=== PATIENT | female | born 1955 | race Caucasian/White ===

== ENCOUNTER 2018-11-21 03:45 | Emergency (ER) | payer MEDICARE, OTHER, BC ==
[2018-11-21] MEDS ORDERED: Albuterol/Ipratropium NEB.SOL* Albuterol 2.5 MG/Ipratropium 0.5 MG 3 ML INH ONE (04:03)
[2018-11-21 04:21] LABS: ABS Basophils 0.1 10^3/ul (0-0.2); ABS Eosinophils 0.1 10^3/ul (0-0.6); ABS Lymphocytes 1.8 10^3/ul (1.0-4.8); ABS Monocytes 0.5 10^3/ul (0-0.8); ABS Neutrophils 7.6 10^3/ul (1.5-7.7); Eosinophil % 1.1 %; Hematocrit 36 % (35-47); Hemoglobin 12.8 g/dL (12.0-16.0); Lymphocyte % 18.1 %; Mean Corpuscular HGB Conc 35 g/dL (31-36); Mean Corpuscular Hemoglobin 29 pg (27-31); Mean Corpuscular Volume 82 fL (80-97); Mean Platelet Volume 8.4 fL (7.4-10.4); Platelet Count 336 10^3/uL (150-450); Red Blood Count 4.43 10^6 /uL (3.70-4.87); Red Cell Distribution Width 13 % (10-15); White Blood Count 10.1 10^3/uL (3.5-10.8)
[2018-11-21 04:39] LABS: Albumin 4.2 g/dL (3.2-5.2); Albumin/Globulin Ratio 1.4 (1-3); BUN/Creatinine Ratio 20.5 (8-20); Calcium 9.7 mg/dL (8.6-10.3); EGFR African American 96.8 (>60); Globulin 2.9 g/dL (2-4); Potassium 3.4 mmol/L (3.5-5.0); Total Bilirubin 0.4 mg/dL (0.2-1.0); Total Protein 7.1 g/dL (6.4-8.9)
[2018-11-21] MEDS ORDERED: Lidocaine 4% TOPICAL* 50 ML TOP.SOLN TOPICAL ONE (04:47)
[2018-11-21] MEDS ORDERED: Benzonatate CAP* 100 MG PO ONE (05:52)
[2018-11-21] MEDS ORDERED: Iohexol 300* (CONTRAST) 10 ML SDV IV ONE (05:55)
--- NOTE | 2018-11-21 06:52 | ED ---
Shortness of Breath - HPI Summary HPI Summary: This patient is a 63 year old F w hx asthma [facility] by with a chief complaint of productive cough since 11/11/18. Patient states that she saw her PCP on 11/13/18 for symptoms. Patient's PCP diagnosed her with bronchitis of lower lungs and prescribed a Zpack. Patient states she has a persistent dry cough worse at night has been keeping her up at night. She also feels that her throat is tight and painful secondary to coughing. She reports shortness of breath worse when she coughs, no chest pain, no fevers. Patient reports PMHx of asthma and last administered inhaler at 0200. Patient reports she is on Hydrochlorothiazide. PMHx of HTN is noted. - History of Current Complaint Chief Complaint: EDShortnessOfBreath Time Seen by Provider: 11/21/18 03:55 Hx Obtained From: Patient, Family/Glass Beveler - Onset/Duration: Lasting Days - 11/11/18, Still Present Timing: Constant Current Severity: Mild - 5/10 per ED Triage Dyspnea At: Rest Associated Signs & Symptoms: Cough (Productive) - white sputum - Allergy/Home Medications Allergies/Adverse Reactions: Allergies Allergy/AdvReac Type Severity Reaction Status Date / Time No Known Allergies Allergy Verified 11/21/18 03:47 Home Medications: Home Medications Albuterol inh POWDER (NF) [Proair Respiclick] 1 - 2 puff INH QID PRN 11/21/18 [ History Confirmed 11/21/18] Cholecalciferol (Vitamin D3) [Vitamin D3] 1 cap PO DAILY 11/21/18 [History Confirmed 11/21/18] Codeine Phosphate/Guaifenesin [Virtussin AC Liquid] 1 dose PO Q8H PRN 11/21/18 [ History Confirmed 11/21/18] Conjugated Estrogens TAB* [Premarin TAB*] 0.3 mg PO EVERY OTHER DAY 11/21/18 [ History Confirmed 11/21/18] Hydrochlorothiazide TAB* [Hydrodiuril TAB*] 25 mg PO DAILY 11/21/18 [History Confirmed 11/21/18] Magnesium Oxide TAB* [MagOx 400 TAB*] 1 tab PO DAILY 11/21/18 [History Confirmed 11/21/18] Multivitamin [Multivitamins] 1 tab PO DAILY 11/21/18 [History Confirmed 11/21/18 ] PMH/Surg Hx/FS Hx/Imm Hx Endocrine/Hematology History: Denies: Hx Diabetes Cardiovascular History: Reports: Hx Hypertension Denies: Hx Pacemaker/ICD Respiratory History: Reports: Hx Asthma Denies: Hx Chronic Obstructive Pulmonary Disease (COPD) History: Denies: Hx Renal Disease Sensory History: Denies: Hx Hearing Aid Psychiatric History: Denies: Hx Panic Disorder - Cancer History Hx Chemotherapy: No Hx Radiation Therapy: No - Surgical History Surgery Procedure, Year, and Place: HYSTERECTOMY/FALLEN BLADDER CORRECTION/ APPENDECTOMY/TONSILS/CYST REMOVED FROM BREAST. LASER PROCEDURE FOR ENDOMETRIOSIS X 3 Infectious Disease History: No Infectious Disease History: Denies: Traveled Outside the [place] in Last 30 Days - Family History Known Family History: Positive: Diabetes - Social History Alcohol Use: None Substance Use Type: Reports: None Hx Tobacco Use: No Smoking Status (MU): Never Smoked Tobacco Review of Systems Negative: Fever Positive: Shortness Of Breath, Cough, Other - Negative- Wheezing All Other Systems Reviewed And Are Negative: Yes Physical Exam - Summary Physical Exam Summary: Constitutional: Well-developed, Well-nourished, Alert. (-) Distressed Skin: Warm, Dry HENT: Normocephalic; Atraumatic Eyes: Conjunctiva normal Neck: Musculoskeletal ROM normal neck. (-) JVD, (-) Stridor, (-) Nuchal rigidity Cardio: Rhythm regular, rate normal, Heart sounds normal; Intact distal pulses; Radial pulses are 2+ and symmetric. (-) Murmur Pulmonary/Chest wall: Mild inc WOB, dry cough (-) Respiratory distress, (-) Wheezes, (-) Rales Abd: Soft, (-) tenderness, (-) Distension, (-) Guarding, (-) Rebound Musculoskeletal: (-) Edema Lymph: (-) Cervical adenopathy Neuro: Alert, Oriented x3 Psych: Mood and affect Normal Triage Information Reviewed: Yes Vital Signs On Initial Exam: Initial Vitals Temp Pulse Resp BP Pulse Ox 98 F 71 24 186/72 98 11/21/18 03:46 11/21/18 03:46 11/21/18 03:46 11/21/18 03:46 11/21/18 03:46 Vital Signs Reviewed: Yes Diagnostics - Vital Signs Vital Signs Temp Pulse Resp BP Pulse Ox 11/21/18 05:17 74 98 11/21/18 05:16 175/82 11/21/18 04:20 64 16 96 11/21/18 04:15 20 11/21/18 04:03 68 97 11/21/18 03:46 98 F 71 24 186/72 98 - Laboratory Lab Results: Lab Results 11/21/18 11/21/18 11/21/18 Range/Units 04:15 04:15 04:15 WBC 10.1 (3.5-10.8) 10^3/uL RBC 4.43 (3.70-4.87) 10^6 /uL Hgb 12.8 (12.0-16.0) g/dL Hct 36 (35-47) % MCV 82 (80-97) fL MCH 29 (27-31) pg MCHC 35 (31-36) g/dL RDW 13 (10-15) % Plt Count 336 (150-450) 10^3/uL MPV 8.4 (7.4-10.4) fL Neut % (Auto) 74.7 % Lymph % (Auto) 18.1 % Prentiss % (Auto) 5.4 % Eos % (Auto) 1.1 % Baso % (Auto) 0.7 % Absolute Neuts (auto) 7.6 (1.5-7.7) 10^3/ul Absolute Lymphs (auto) 1.8 (1.0-4.8) 10^3/ul Absolute Monos (auto) 0.5 (0-0.8) 10^3/ul Absolute Eos (auto) 0.1 (0-0.6) 10^3/ul Absolute Basos (auto) 0.1 (0-0.2) 10^3/ul Absolute Nucleated RBC 0.0 10^3/ul Nucleated RBC % 0.0 Sodium 138 (135-145) mmol/L Potassium 3.4 L (3.5-5.0) mmol/L Chloride 103 (101-111) mmol/L Carbon Dioxide 21 L (22-32) mmol/L Anion Gap 14 H (2-11) mmol/L BUN 15 (6-24) mg/dL Creatinine 0.73 (0.51-0.95) mg/dL Est GFR ( Amer) 96.8 (>60) Est GFR (Non-Af Amer) 80.0 (>60) BUN/Creatinine Ratio 20.5 H (8-20) Glucose 135 H (70-100) mg/dL Calcium 9.7 (8.6-10.3) mg/dL Total Bilirubin 0.40 (0.2-1.0) mg/dL AST 22 (13-39) U/L ALT 36 (7-52) U/L Alkaline Phosphatase 111 H (34-104) U/L B-Natriuretic Peptide 43 (<=100) pg/mL Total Protein 7.1 (6.4-8.9) g/dL Albumin 4.2 (3.2-5.2) g/dL Globulin 2.9 (2-4) g/dL Albumin/Globulin Ratio 1.4 (1-3) Result Diagrams: 11/21/18 04:15 11/21/18 04:15 Lab Statement: Any lab studies that have been ordered have been reviewed, and results considered in the medical decision making process. - Radiology CXR Radiology Interpretation Completed By: ED Physician Summary of Radiographic Findings: No acute process, pending official report. - CT Neck CT Scan CT Interpretation Completed By: Radiologist Summary of CT Findings: Neck CT Scan reveals, per radiologist, IMPRESSION: Multiple nodules are located in the right thyroid lobe. Largest nodule measures 1.3 cm in diameter. If the thyroid nodules are in the location of the patient's perceived neck swelling, suggest ultrasound evaluation of the thyroid gland. ED Physician has reviewed this report. Re-Evaluation - Re-Evaluation First Eval Comment: After albuterol and lidocaine neb, patient seports that she still feels short of breath and that her throat is still tight, we'll check a CT neck. Will also give tessalon pearls. Second Eval Change: Improved - Patient states cough improved Tessalon Pearls. Normal work of breathing on exam. CT shows nodules of the thyroid, advised patient to follow-up with her primary care doctor to get ultrasound. Patient without obstructive symptoms on exam. Do not think that her nodules are causing her discomfort Course/Dx - Course Course Of Treatment: 63-year-old female with history of hypertension and asthma presents with cough for 1 week. -Exam: mildly dyspneic otherwise unremarkable. Lungs clear bilaterally, given persistent cough and asthma history well try albuterol neb for comfort. Check a chest x-ray to rule out pneumonia. Not hypoxic or tachycardic, no risk factors for PE. No CP, low suspicion ACS. - Diagnoses Provider Diagnoses: SOB (shortness of breath), Thyroid nodule Discharge ED - Sign-Out/Discharge Documenting (check all that apply): Patient Departure - discharge Patient Received Moderate/Deep Sedation with Procedure: No - Discharge Plan Condition: Stable Disposition: HOME Prescriptions: Benzonatate CAP* [Tessalon 100 MG CAP*] 100 mg PO TID 10 Days #30 cap Patient Education Materials: Chronic Cough (ED), Shortness of Breath (ED) Referrals: Ulisses Almendarez DO [Primary Care Provider] - 3 Days Additional Instructions: You were seen in the emergency department for cough and shortness of breath. Your CT scan showed nodules on your thyroid, please get an ultrasound of this with your doctor. Your X-ray did not show pneumonia. If any studies were not completed at the time of discharge you will be called with the relevant results. Please follow up with your primary care doctor in next 2-3 days and return to emergency department for worsening or concerning symptoms. It was a pleasure taking care of you today. - Billing Disposition and Condition Condition: STABLE Disposition: Home - Attestation Statements Document Initiated by Scribe: Yes Documenting Scribe: Charlee Tyson Provider For Whom Mary is Documenting (Include Credential): Jimmie Benavides MD Scribe Attestation: ICharlee, scribed for Jimmie Benavides MD on 11/21 at 0734. Scribe Documentation Reviewed: Yes Provider Attestation: The documentation as recorded by the scribe, Charlee Tyson accurately reflects the service I personally performed and the decisions made by , Jimmie Benavides MD Status of Scribe Document: Viewed
[2018-11-21 07:08] VITALS: BP 155/75
== END 2018-11-21 07:06 | disposition home or self-care (01) ==
LOC: ED 03:45
DX: R06.02 Shortness of breath (principal); E04.1 Nontoxic single thyroid nodule; I10 Essential (primary) hypertension; Z90.710 Acquired absence of both cervix and uterus; Z90.89 Acquired absence of other organs; Z79.899 Other long term (current) drug therapy
CPT/HCPCS: 36415; 70491; 71046; 80053; 83880; 85025; 99283; A9270-GY; Q9967

== ENCOUNTER 2018-12-15 10:19 | Emergency (ER) | payer MEDICARE, BC ==
--- NOTE | 2018-12-15 10:55 | ED ---
Respiratory - HPI Summary HPI Summary: The patient is a 63 y/o F presenting to [facility] with a chief complaint of productive cough with thick white phlegm gradually worsening over the last six weeks. She reports that since onset, see has been diagnosed with bronchitis, a viral infection, and asthma exacerbation with antibiotics (Azithromycin, Cefdinir) and steroids, which she started taking two days ago. She also has had two negative chest x-rays. Now she states her cough has worsened, and her face is red. She denies any fever, chest pain, or shortness of breath except with coughing. Currently, her symptoms are rated 2/10 in severity. The recumbent position aggravates the symptoms. Her inhaler is not alleviating her symptoms. She states that her asthma often is exacerbated by environmental factors. PMHx: HTN, asthma, shingles. Nonsmoker, no EtOH, no substance use. Medications reviewed. Allergies noted. - History of Current Complaint Chief Complaint: EDUpperRespComplaint Stated Complaint: GENERAL ILLNESS PER PT Time Seen by Provider: 12/15/18 10:44 Hx Obtained From: Patient Onset/Duration: Gradual Onset, Lasting Weeks - six, Still Present Pain Intensity: 2 Character: Cough (Productive) Sputum Amount: Moderate Sputum Color: White - thick Aggravating Factor(s): Recumbent Position Alleviating Factor(s): Nothing - antibiotics, steroids, inhaler to no relief Associated Signs and Symptoms: SOB - only with cough - Allergy/Home Medications Allergies/Adverse Reactions: Allergies Allergy/AdvReac Type Severity Reaction Status Date / Time No Known Allergies Allergy Verified 12/15/18 10:25 Home Medications: Home Medications Cefdinir [Cefdinir 300 MG CAP] 300 mg PO BID 12/15/18 [History Confirmed ] methylPREDNISolone [Methylpred Dp] 4 mg PO SEE INSTRUCTIONS 12/15/18 [History Confirmed 12/15/18] PMH/Surg Hx/FS Hx/Imm Hx Endocrine/Hematology History: Denies: Hx Diabetes Cardiovascular History: Reports: Hx Hypertension Denies: Hx Hypercholesterolemia, Hx Pacemaker/ICD Respiratory History: Reports: Hx Asthma Denies: Hx Chronic Obstructive Pulmonary Disease (COPD) History: Denies: Hx Renal Disease Sensory History: Reports: Hx Contacts or Glasses Denies: Hx Hearing Aid Opthamlomology History: Reports: Hx Contacts or Glasses Psychiatric History: Denies: Hx Panic Disorder - Cancer History Hx Chemotherapy: No Hx Radiation Therapy: No - Surgical History Surgical History: Yes Surgery Procedure, Year, and Place: HYSTERECTOMY/FALLEN BLADDER CORRECTION/ APPENDECTOMY/TONSILS/CYST REMOVED FROM BREAST. LASER PROCEDURE FOR ENDOMETRIOSIS X 3 Infectious Disease History: No Infectious Disease History: Reports: Hx Shingles Denies: Traveled Outside the [place] in Last 30 Days - Family History Known Family History: Positive: Diabetes - Social History Alcohol Use: None Hx Substance Use: No Substance Use Type: Reports: None Hx Tobacco Use: No Smoking Status (MU): Never Smoked Tobacco Review of Systems Negative: Fever Negative: Chest Pain Positive: Shortness Of Breath - only with cough, Cough - productive, white phlegm All Other Systems Reviewed And Are Negative: Yes Physical Exam - Summary Physical Exam Summary: VITAL SIGNS: Reviewed. GENERAL: Patient is a well-developed and obese female who is lying comfortable in the stretcher. Patient is not in any acute respiratory distress. HEAD AND FACE: No signs of trauma. No ecchymosis, hematomas or skull depressions. No sinus tenderness. EYES: PERRLA, EOMI x 2, No injected conjunctiva, no nystagmus. EARS: Hearing grossly intact. Ear canals and tympanic membranes are within normal limits. MOUTH: Oropharynx within normal limits. NECK: Supple, trachea is midline, no adenopathy, no JVD, no carotid bruit, no c- spine tenderness, neck with full ROM. CHEST: Symmetric, no tenderness at palpation. LUNGS: Bilateral wheezing. No crackles. CVS: Regular rate and rhythm, S1 and S2 present, no murmurs or gallops appreciated. ABDOMEN: Soft, non-tender. No signs of distention. No rebound, no guarding, and no masses palpated. Bowel sounds are normal. EXTREMITIES: FROM in all major joints, no edema, no cyanosis or clubbing. NEURO: Alert and oriented x 3. No acute neurological deficits. Speech is normal and follows commands. SKIN: Dry and warm. Triage Information Reviewed: Yes Vital Signs On Initial Exam: Initial Vitals Temp Pulse Resp BP Pulse Ox 98.4 F 67 18 181/95 99 12/15/18 10:20 12/15/18 10:20 12/15/18 10:20 12/15/18 10:20 12/15/18 10:20 Vital Signs Reviewed: Yes Procedures - Sedation Patient Received Moderate/Deep Sedation with Procedure: No Diagnostics - Vital Signs Vital Signs Temp Pulse Resp BP Pulse Ox 12/15/18 10:20 98.4 F 67 18 181/95 99 - Laboratory Result Diagrams: 12/15/18 11:27 12/15/18 11:27 Lab Statement: Any lab studies that have been ordered have been reviewed, and results considered in the medical decision making process. - Radiology Chest X-Ray Radiology Interpretation Completed By: Radiologist Summary of Radiographic Findings: Impression: No evidence for active cardiopulmonary disease. ED physician has reviewed this report. - EKG 1111 Cardiac Rate: NL - 60 bpm EKG Rhythm: Sinus Rhythm Summary of EKG Findings: EKG at 1111 reveals NSR at 60 bpm. Q-waves in III. No ST elevations. ED physician has reviewed and interpreted this EKG. Re-Evaluation - Re-Evaluation First Eval Re-Evaluation Time: 12:45 Change: Improved Comment: We discussed all results and plan for discharge. Disposition - Course Assessment/Plan: Patient is a 63 y/o F hx of asthma with a chief complaint of worsening cough over the last six weeks without success in treatment with Azithromycin, Cefdinir, nebulizer, or steroids, and shes had two negative chest x-rays since onset. Denies any fever, chest pain, or shortness of breath except when coughing. Blood work without any significant abnormality except for WBCs 11.3, potassium level 3.4, glucose 102, lactic acid 2.2, and calcium 10.5. Urinalysis negative for infection. Chest x-ray impression: No evidence for active cardiopulmonary disease. In the ED course, the patient was given potassium chloride and DuoNeb, but she declined the Solu-Medrol. I believe that her symptoms are secondary to her asthma exacerbations. After medications, she is feeling better and she will be discharged home with f/u of PCP. I discussed all the findings and test results with the patient. Patient was instructed to return to the emergency room immediately if any of the symptoms return or worsen. Plan of care was discussed with the patient and understands and agrees. All questions were answered at patient satisfaction. There were no further complaints or concerns. Lung exam before discharge: CTA B/L. Good air exchange. No wheezing or crackles heard. CVS: S1 and S2 present. No murmurs appreciated. Patient is alert and oriented x 3. Patient is hemodynamically stable. Patient will be discharged home with follow up international account representative in the next 2-3 days. - Diagnoses Provider Diagnoses: Asthma exacerbation, Hypokalemia Discharge ED - Sign-Out/Discharge Documenting (check all that apply): Patient Departure - Patient will be discharged home. - Discharge Plan Condition: Stable Disposition: HOME Prescriptions: Albuterol/Ipratropium NEB.JAVON* [Duoneb (Albuterol 2.5 MG/Ipratropium 0.5 MG)] 1 neb INH Q4H PRN #1 packet PRN Reason: Shortness Of Breath Patient Education Materials: Asthma (DC) Referrals: Ulisses Almendarez DO [Primary Care Provider] - 3 Days Additional Instructions: Follow up with your primary care provider in 2-3 days. Return to the emergency department for any new or worsening symptoms. - Billing Disposition and Condition Condition: STABLE Disposition: Home - Attestation Statements Document Initiated by Genoibe: Yes Documenting Scribe: Yoko Bautista Provider For Whom Mary is Documenting (Include Credential): Dr. Casper Isaac MD Scribe Attestation: Yoko Turner scribed for Dr. Casper Isaac MD on 12/15/18 at 1844. Scribe Documentation Reviewed: Yes Provider Attestation: The documentation as recorded by the Yoko jordan accurately reflects the service I personally performed and the decisions made by me, Dr. Casper Isaac MD Status of Scribe Document: Viewed
[2018-12-15] MEDS ORDERED: Albuterol/Ipratropium NEB.SOL* Albuterol 2.5 MG/Ipratropium 0.5 MG 3 ML INH ONE (11:00)
[2018-12-15] MEDS ORDERED: methylPREDNISolone 125 MG* 2 ML VIAL IV ONE (11:00)
[2018-12-15 11:35] LABS: ABS Lymphocytes 1.7 10^3/ul (1.0-4.8); ABS Monocytes 0.8 10^3/ul (0-0.8); ABS Neutrophils 8.7 10^3/ul (1.5-7.7); Eosinophil % 0.2 %; Hematocrit 38 % (35-47); Hemoglobin 12.7 g/dL (12.0-16.0); Lymphocyte % 15.1 %; Mean Corpuscular HGB Conc 33 g/dL (31-36); Mean Corpuscular Hemoglobin 28 pg (27-31); Mean Corpuscular Volume 84 fL (80-97); Mean Platelet Volume 8.8 fL (7.4-10.4); Platelet Count 311 10^3/uL (150-450); Red Blood Count 4.51 10^6 /uL (3.70-4.87); Red Cell Distribution Width 14 % (10-15); White Blood Count 11.3 10^3/uL (3.5-10.8)
[2018-12-15 11:53] LABS: Albumin 4.4 g/dL (3.2-5.2); Albumin/Globulin Ratio 1.6 (1-3); BUN/Creatinine Ratio 27.9 (8-20); C Reactive Protein 1.79 mg/L (<8.01); Calcium 10.5 mg/dL (8.6-10.3); EGFR African American 105.1 (>60); EGFR Non-African American 86.8 (>60); Globulin 2.7 g/dL (2-4); Potassium 3.4 mmol/L (3.5-5.0); Total Bilirubin 0.3 mg/dL (0.2-1.0); Total Protein 7.1 g/dL (6.4-8.9)
[2018-12-15 11:58] LABS: CKMB ng/mL 5.3 ng/mL (0.6-6.3)
[2018-12-15 12:41] LABS: Urine Appearance Cloudy; Urine Bilirubin Negative (Negative); Urine Blood Negative (Negative); Urine Color Yellow; Urine Glucose Negative (Negative); Urine Ketones Negative (Negative); Urine Nitrite Negative (Negative); Urine Protein Negative (Negative); Urine Specific Gravity 1.013 (1.010-1.030); Urine Urobilinogen Negative (Negative)
[2018-12-15] MEDS: Potassium Chlor TAB* 20 MEQ TAB.ER PO ONE ×2 (13:09→13:42)
[2018-12-15 14:08] VITALS: BP 159/83
== END 2018-12-15 13:24 | disposition home or self-care (01) ==
LOC: ED 10:19
DX: J45.901 Unspecified asthma with (acute) exacerbation (principal); E87.6 Hypokalemia; I10 Essential (primary) hypertension; R05 Cough
CPT/HCPCS: 36415; 71046; 80053; 81003; 82550; 82553; 83605; 83880; 84484; 85025; 86140; 87040; 93005; 99283; A9270-GY; J2930